=== PATIENT | female | born 1990 | race Caucasian/White ===

== ENCOUNTER 2020-02-06 17:25 | Emergency (ER) | payer BC, SELFPAY ==
[2020-02-06 17:37] VITALS: BP 124/81; PULSE 76; RESP 20; TEMP 36.9; O2SAT 99
--- NOTE | 2020-02-06 17:42 | ED.DENTAL ---
HPI - Dental/Oral General Chief complaint: Dental/Oral Stated complaint: tooth pain Time Seen by Provider: 02/06/20 17:28 Source: patient Mode of arrival: ambulatory Limitations: no limitations History of Present Illness HPI Narrative: 29 year old female presents to [facility] with complaints of right upper tooth pain X 1 week. Patient reports that her last wisdom tooth broke off a few weeks ago and is also needing a root canal to another right upper tooth. Patient is scheduled to see her dentist on 02/16. Patient has been taking OTC Motrin and Tylenol with minimal relief. Patient denies fever, body aches, nausea, vomiting or diarrhea MD Complaint: tooth pain Location: Tooth # (1 and 3 ) Duration: constant Severity: mild Relieving factors: nothing Exacerbating factors: chewing Treatment prior to arrival: oral analgesic Related Data Allergies Allergy/AdvReac Type Severity Reaction Status Date / Time No Known Allergies Allergy Verified 02/06/20 17:39 Review of Systems Review of Systems: All systems reviewed & are unremarkable except as noted in HPI and below Constitutional: Constitutional: Reports chills, Denies fatigue, Denies fever(s) and Denies weakness ENT: Denies dysphagia, Denies vertigo, Denies dizziness, Denies epistaxis, Denies nasal congestion and Denies sore throat Comments: dental pain Cardiovascular: Cardiovascular: Denies chest pain, Denies rapid heart rate, Denies radiating jaw, neck or arm pain and Denies slow heart rate Respiratory: Respiratory: Denies chest congestion, Denies cough, Denies dyspnea and Denies wheezing Gastrointestinal: Gastrointestinal: Denies abdominal pain, Denies diarrhea, Denies nausea and Denies vomiting Integumentary/Breasts: Skin/Breast: Denies rash Neurologic: Denies dizziness, Denies headache(s), Denies numbness and Denies weakness [facility] Social History Social History (Updated 02/06/20 @ 17:45 by Kelli Siegel APRN) Smoking status: Never smoker Gender identity (if verbalized by the patient): Female Exam Const: General: healthy appearing, no acute distress and alert Orientation/consciousness: patient oriented x3 HENMT: Mouth: Yes moist mucous membranes Teeth and gingiva: abnormal tooth and associated gingiva (partial avulsion noted to right 3rd molar. Pain to right 1st molar) upper third molar avulsed, upper right first molar tender Throat: uvula midline Neck: Neck: normal visual inspection Resp: Effort & Inspection: normal respiratory effort Auscultation: clear to auscultation bilaterally Cardio: Rate: regular rate Rhythm: regular rhythm and regular rhythm Heart sounds: no murmurs Skin: General skin exam: normal color, no jaundice and no pallor Rashes: no rashes Wounds: no wounds Neuro: General: patient oriented x3 and moves all extremities Psych: Appearance: grossly normal Mental Status: mental status grossly normal Affect: normal affect Attitude: cooperative Thought content: Yes Normal thought content present Course RANGE MASTER/PA Physician Supervision Patient agrees to keep her scheduled appt with her dentist on 02/16. Patient agrees to take PCN and Meloxicam as prescribed. Patient agrees to complete salt water gargles as needed for pain relief. Patient agrees to proceed to ER if symptoms worsen Vital Signs Vital signs: Vital Signs Temperature 36.9 C 02/06/20 17:37 Pulse Rate 76 02/06/20 17:37 Respiratory Rate 20 02/06/20 17:37 Blood Pressure 124/81 02/06/20 17:37 Pulse Oximetry 99 02/06/20 17:37 Temperature 36.9 C 02/06/20 17:37 Pulse Rate 76 02/06/20 17:37 Respiratory Rate 20 02/06/20 17:37 Blood Pressure 124/81 02/06/20 17:37 Pulse Oximetry 99 02/06/20 17:37 MDM - Dental/Oral Differential Diagnosis Differential diagnosis: Likely gingival abscess, dental caries and dental abscess Critical Care Time Critical Care Time Critical Care Time: No Discharge Plan Discharge Clinical Impression: Toothache Fr
== END 2020-02-06 18:01 | disposition home or self-care (01) ==
PROVIDERS: Emergency Provider Nurse Practitioner Family
DX: K08.89 Other specified disorders of teeth and supporting structures (principal); S02.5XXA Fracture of tooth (traumatic), initial encounter for closed fracture; X58.XXXA Exposure to other specified factors, initial encounter
CPT/HCPCS: 99213; G0463

== ENCOUNTER 2021-02-04 17:13 | Emergency (ER) | payer BC, SELFPAY ==
[2021-02-04 17:22] VITALS: BP 123/84; PULSE 89; RESP 16; TEMP 36.8; O2SAT 100
[2021-02-04 17:27] VITALS: BP 123/84; PULSE 89; RESP 16; TEMP 36.8; O2SAT 100
--- NOTE | 2021-02-04 17:36 | ED.DENTAL ---
HPI - Dental/Oral General Chief complaint: Dental/Oral Stated complaint: Tooth pain History of Present Illness HPI Narrative: This is a 30 year old that come in complaining of left sided dental pain with a fracture tooth. According to patient her tooth has been fractured for a while but it just started to swell and hurt and throb . Patient states she has been taking Ibuprofen and Tylenol but she is still having a lot of pain. Related Data Allergies Allergy/AdvReac Type Severity Reaction Status Date / Time No Known Allergies Allergy Verified 02/04/21 17:26 Review of Systems Review of Systems: CONSTITUTIONAL: Denies fever, chills, or sweats. EYES: Denies visual changes, redness, or discharge. ENT: Denies rhinorrhea, congestion, sore throat, or otalgia. gums are swollen with throbbing pain CARDIOVASCULAR:Denies chest pain, palpitations, or edema. RESPIRATORY: Denies cough or dyspnea. GASTROINTESTINAL: Denies abdominal pain, nausea, vomiting, or diarrhea. GENITOURINARY: Denies dysuria or hematuria. SKIN:[Denies rash or itching. MUSCULOSKELETAL:Denies back pain, joint pain, or myalgia. NEUROLOGIC: Denies headache, numbness, or weakness. PSYCHIATRIC:Denies anxiety or depression PMF[facility] Social History Social History (Updated 02/06/20 @ 17:45 by Kelli Siegel APRN) Smoking status: Never smoker Gender identity (if verbalized by the patient): Female Comments At time as signature, I have reviewed and agree with nursing past medical, social, surgical and family history. Please see nursing chart for further information. There is no relevant family history pertinent to the presenting complaint. Exam Narrative: GENERAL:Well-appearing, well-nourished, and in no acute distress. HEAD:Normocephalic, atraumatic. EYES: PERRLA ENT: Nares clear, no rhinorrhea or epistaxis. Mucous membranes moist.left lower tooth fracture and swelling on the outer side of gum with erythema NECK: Supple. CHEST: No respiratory distress. HEART: denie chest pain ABDOMEN: Soft, nontender, nondistended, normal active bowel sounds. EXTREMITIES: Normal range of motion. No edema. SKIN: Warm, dry, no rash. NEURO: No focal deficits. Alert and oriented x3. Course Vital Signs Vital signs: Vital Signs Temperature 98.2 F 02/04/21 17:22 Pulse Rate 89 02/04/21 17:22 Respiratory Rate 16 02/04/21 17:22 Blood Pressure 123/84 02/04/21 17:22 Pulse Oximetry 100 02/04/21 17:22 Temperature 98.2 F 02/04/21 17:27 Pulse Rate 89 02/04/21 17:27 Respiratory Rate 16 02/04/21 17:27 Blood Pressure 123/84 02/04/21 17:27 Pulse Oximetry 100 02/04/21 17:27 MDM - Dental/Oral Differential Diagnosis Differential diagnosis: Likely gingival abscess, dental caries, toothache, dental abscess, fracture of tooth and aphthous ulcer Discharge Plan Discharge Clinical Impression: Tooth ache Fracture of tooth Qualifiers: Encounter type: initial encounter Fracture type: open Qualified Code(s): S02.5XXB - Fracture of tooth (traumatic), initial encounter for open fracture Patient Disposition: Home, Self-Care Condition: Stable Instructions: Antibiotic Form, Cavity Preventive (For the teeth or gums), Dental Abscess (ED), Acute Dental Trauma (ED), Toothache (ED) Additional Instructions: Antibiotic as directed Avoid temperature extremes May apply heat or ice to the face Gentle brushing and flossing Alternate tylenol and ibuprofen as needed for pain Follow-up with the dentist as soon as possible--see the list provided Prescriptions: New amoxicillin 500 mg capsule 500 mg PO Q12H 10 Days Qty: 20 RF: 0 prednisone 10 mg tablet 20 mg PO DAILY 3 Days Qty: 6 RF: 0 ibuprofen 600 mg tablet 600 mg PO TID PRN (Reason: fever or pain) Qty: 20 RF: 0 Follow-up/Referrals: PHYSICIAN,MILITARY SCIENCE TEACHER [Primary Care Provider] - Stand Alone Forms: Work/School Release IP Time of Disposition: 17:47
== END 2021-02-04 17:53 | disposition home or self-care (01) ==
PROVIDERS: Emergency Provider Nurse Practitioner Family
DX: S02.5XXB Fracture of tooth (traumatic), initial encounter for open fracture (principal); X58.XXXA Exposure to other specified factors, initial encounter
CPT/HCPCS: 99213; G0463

== ENCOUNTER 2021-10-10 15:06 | Emergency (ER) | payer BC, SELFPAY ==
[2021-10-10 15:23] VITALS: BP 122/77; PULSE 104; RESP 16; TEMP 36.6; O2SAT 99
--- NOTE | 2021-10-10 15:35 | ED.EYEPROB ---
HPI - Eye Problem General Chief complaint: Eye Problems Stated complaint: swollen rt eye lid Time Seen by Provider: 10/10/21 15:35 Source: patient Mode of arrival: ambulatory Limitations: no limitations History of Present Illness HPI Narrative: 31-year-old female presents with erythema, swelling, tenderness to right upper eyelid for several days. Reports she morning with crusting to eyelids. No vision changes. All systems reviewed and negative except as noted above. Related Data Allergies Allergy/AdvReac Type Severity Reaction Status Date / Time No Known Allergies Allergy Verified 10/10/21 15:18 Review of Systems Review of Systems: CONSTITUTIONAL: Denies fever, chills, or sweats. EYES: Denies visual changes, redness, or discharge. Reports redness, swelling, tenderness to right upper eyelid. ENT: Denies rhinorrhea, congestion, sore throat, or otalgia. CARDIOVASCULAR: Denies chest pain, palpitations, or edema. RESPIRATORY: Denies cough or dyspnea. GASTROINTESTINAL: Denies abdominal pain, nausea, vomiting, or diarrhea. GENITOURINARY: Denies dysuria or hematuria. SKIN: Denies rash or itching. MUSCULOSKELETAL: Denies back pain, joint pain, or myalgia. NEUROLOGIC: Denies headache, numbness, or weakness. PSYCHIATRIC: Denies anxiety or depression. All other systems reviewed are negative, except as documented in HPI. [facility] Social History Social History (Updated 02/06/20 @ 17:45 by Kelli Siegel APRN) Smoking status: Never smoker Gender identity (if verbalized by the patient): Female Comments At time of signature, agree with nursing past medical, surgical, social and family history. There is no relevant family history pertinent to the presenting complaint. Exam Narrative: GENERAL: This is a well-nourished, well-developed patient, in no apparent distress. HEAD: normocephalic, atraumatic. EYES: PERRL. Sclera clear/white. Vision is grossly intact. Erythema, swelling to right upper leg noted. There is a solorzano noted to internal eyelid in the inner corner. No drainage noted. Tender on palpation. EARS: External ears normal NOSE: External nose normal THROAT: Mucous membranes moist, posterior pharynx clear. NECK: Neck supple, non-tender without lymphadenopathy, masses or thyromegaly. CARDIOVASCULAR: Regular rate and rhythm without murmurs, gallops, or rubs. RESPIRATORY: Clear to auscultation. Breath sounds equal bilaterally. No wheezes, rales, or rhonchi. SKIN: warm, Dry, intact with no suspicious lesions or rash, good texture and turgor. NEURO: awake, alert, and oriented to person, place and time. There were no obvious focal neurologic abnormalities. EXTREMITIES: Normal range of motion to all extremities. Course Course Level of Care: Express Care Visit Vital Signs Vital signs: Vital Signs Temperature 36.6 C 10/10/21 15:23 Pulse Rate 104 H 10/10/21 15:23 Respiratory Rate 16 10/10/21 15:23 Blood Pressure 122/77 10/10/21 15:23 Pulse Oximetry 99 10/10/21 15:23 Temperature 36.6 C 10/10/21 15:23 Pulse Rate 104 H 10/10/21 15:23 Respiratory Rate 16 10/10/21 15:23 Blood Pressure 122/77 10/10/21 15:23 Pulse Oximetry 99 10/10/21 15:23 Reviewed MDM - Eye Problem MDM Narrative Medical decision making narrative: Patient is aware of diagnosis, understands and agrees to treatment plan. Anticipatory guidance given. Patient agrees to follow-up as directed and is aware of reasons to seek care at the emergency department. Portions of this record may have been created with voice recognition software Differential Diagnosis Differential diagnosis: Likely conjunctivitis, periorbital cellulitis and other (Stye) Discharge Plan Discharge Clinical Impression: Hordeolum internum of right upper eyelid Patient Disposition: Home, Self-Care Condition: Stable Instructions: Antibiotic Bela Vasquez (ED) Additional Instructions: Take antibiotics as prescribed. Wash hands prior to applying oi
== END 2021-10-10 15:48 | disposition home or self-care (01) ==
PROVIDERS: Emergency Provider Nurse Practitioner Family
DX: H00.021 Hordeolum internum right upper eyelid (principal)
CPT/HCPCS: 99213; G0463

== ENCOUNTER 2023-07-15 10:26 | Emergency (ER) | payer OTHER, SELFPAY ==
--- NOTE | ~2023-07-15 | XR_ITS ---
EXAMINATION: XR chest 2V DATE: 07/15/2023 11:39 INDICATION: Cough. Congestion. TECHNIQUE: Frontal and lateral views of the chest were obtained. COMPARISON: None. FINDINGS: There is no pneumonia, pleural effusion, or pneumothorax. The heart size is normal. IMPRESSION: 1. No acute cardiopulmonary disease. Reviewed, dictated and finalized at location A. E LOSS PREVENTION MANAGER
[2023-07-15 11:07] VITALS: BP 124/87; PULSE 110; RESP 16; TEMP 36.2; O2SAT 100
--- NOTE | 2023-07-15 11:23 | ED.URI ---
HPI - URI/Sore Throat General Chief Complaint: Upper Respiratory Infection Stated Complaint: flu, chest pain Time Seen by Provider: 07/15/23 11:23 Source: patient Mode of arrival: ambulatory Limitations: no limitations History of Present Illness HPI Narrative: 33-year-old female presents with complaint of cough, chest congestion, fatigue, body aches, nasal congestion for 5 days. 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 Assumes that she had flu. Had fever for 1 day. Patient states cough, chest tightness, pressure and heaviness with coughing and congestion settling in chest. has taken Tylenol and ibuprofen to treat pain, has taken a few doses of Mucinex without relief of cough. Patient concerned for pneumonia. All systems reviewed and negative except as noted above. Related Data Allergies Allergy/AdvReac Type Severity Reaction Status Date / Time No Known Allergies Allergy Verified 07/15/23 11:16 Review of Systems Review of Systems: CONSTITUTIONAL: Denies fever, chills, or sweats. reports fatigue EYES: Denies visual changes, redness, or discharge. ENT: Reports rhinorrhea, congestion. Denies sore throat, or otalgia. CARDIOVASCULAR: Denies chest pain, palpitations, or edema. RESPIRATORY: reports cough. denies dyspnea. GASTROINTESTINAL: Denies abdominal pain, nausea, vomiting, or diarrhea. GENITOURINARY: Denies dysuria or hematuria. SKIN: Denies rash or itching. MUSCULOSKELETAL: Denies back pain, joint pain, or myalgia. NEUROLOGIC: Denies headache, numbness, or weakness. PSYCHIATRIC: Denies anxiety or depression. All other systems reviewed are negative, except as documented in HPI. PMFSH Social History Social History (Updated 02/06/20 @ 17:45 by Kelli Siegel, ROOM SERVICE WAITER/WAITRESS) Smoking status: Never smoker Gender identity (if verbalized by the patient): Female Comments At time of signature, agree with nursing past medical, surgical, social and family history. There is no relevant family history pertinent to the presenting complaint. Exam Narrative: GENERAL: This is a well-nourished, well-developed patient, in no apparent distress. HEAD: normocephalic, atraumatic. EYES: PERRL. Sclera clear/white. Vision is grossly intact. EARS: External ears normal, auditory canals clear and without drainage, TMs normal without perforation. Hearing grossly intact. NOSE: External nose normal with no obvious nasal discharge, nares without redness, no rhinorrhea. THROAT: Mucous membranes moist, posterior pharynx clear. NECK: Neck supple, non-tender without lymphadenopathy, masses or thyromegaly. CARDIOVASCULAR: Regular rate and rhythm without murmurs, gallops, or rubs. RESPIRATORY: Clear to auscultation. Breath sounds equal bilaterally. No wheezes, rales, or rhonchi. SKIN: warm, Dry, intact with no suspicious lesions or rash, good texture and turgor. NEURO: awake, alert, and oriented to person, place and time. There were no obvious focal neurologic abnormalities. EXTREMITIES: No joint tenderness, effusion, or edema noted. Course Course Level of Care: Express Care Visit Vital Signs Vital signs: Vital Signs Temperature 36.2 C L 07/15/23 11:07 Pulse Rate 110 H 07/15/23 11:07 Respiratory Rate 16 07/15/23 11:07 Blood Pressure 124/87 07/15/23 11:07 Pulse Oximetry 100 07/15/23 11:07 Oxygen Delivery Room Air 07/15/23 11:07 Temperature 36.2 C L 07/15/23 11:07 Pulse Rate 110 H 07/15/23 11:07 Respiratory Rate 16 07/15/23 11:07 Blood Pressure 124/87 07/15/23 11:07 Pulse Oximetry 100 07/15/23 11:07 Oxygen Delivery Room Air 07/15/23 11:07 reviewed MDM - URI/Sore Throat MDM Narrative Medical decision making narrative: hands clear to auscultation. Patient requesting chest x-ray to rule out pneumonia. Chest x-ray was normal. Patient nontoxic, well appearing. No respiratory distress. Patient is aware of diagnosis, understands and agrees to treatment
== END 2023-07-15 12:00 | disposition home or self-care (01) ==
PROVIDERS: Emergency Provider Nurse Practitioner Family
DX: J06.9 Acute upper respiratory infection, unspecified (principal)
CPT/HCPCS: 71046; 99213; G0463